=== PATIENT | male | born 1955 | race Caucasian/White ===

== ENCOUNTER → 2017-06-03 | Outpatient (REF) | payer OTHER, MEDICARE ==
[2017-06-03 13:08] LABS: APPEARANCE, URINE CLEAR (CLEAR); BACTERIA, URINE AUTO NEGATIVE (NEGATIVE); BILIRUBIN, URINE AUTO NEGATIVE (NEGATIVE); BLOOD, URINE BLOOD 1+ (NEGATIVE); COLOR, URINE YELLOW (YELLOW); GLUCOSE, URINE (UA) AUTO NEGATIVE (NEGATIVE); KETONE, URINE AUTO NEGATIVE (NEGATIVE); LEUKOCYTE ESTERASE, URINE AUTO NEGATIVE (NEGATIVE); MUCUS, URINE SMALL (NEGATIVE); NITRITE, URINE AUTO NEGATIVE (NEGATIVE); PROTEIN, URINE AUTO NEGATIVE (NEGATIVE); RBC, URINE AUTO 2 /HPF (0-3); SPECIFIC GRAVITY URINE AUTO 1.009 (1.002-1.035); SQUAMOUS EPITHELIAL CELL UR AU 0 /HPF (0-6); UROBILINOGEN, URINE AUTO 0.2 mg/dL (0.0-2.0); WBC, URINE AUTO 0 /HPF (0-3)
== END ==
LOC: M SMT 12:47
DX: R97.20 Elevated prostate specific antigen [PSA] (principal)

== ENCOUNTER → 2017-06-03 | Outpatient (CLI) | payer OTHER, MEDICARE ==
[2017-06-05 14:19] LABS: PSA TOTAL 12.2 ng/mL (0.0-4.0)
== END ==
LOC: M SMT 12:58
DX: R97.20 Elevated prostate specific antigen [PSA] (principal)
CPT/HCPCS: 84154

== ENCOUNTER → 2017-10-07 | Outpatient (REF) | payer OTHER, MEDICARE ==
[2017-10-07 17:00] LABS: APPEARANCE, URINE CLEAR (CLEAR); BACTERIA, URINE AUTO NEGATIVE (NEGATIVE); BILIRUBIN, URINE AUTO NEGATIVE (NEGATIVE); BLOOD, URINE BLOOD NEGATIVE (NEGATIVE); COLOR, URINE YELLOW (YELLOW); GLUCOSE, URINE (UA) AUTO NEGATIVE (NEGATIVE); KETONE, URINE AUTO NEGATIVE (NEGATIVE); LEUKOCYTE ESTERASE, URINE AUTO NEGATIVE (NEGATIVE); NITRITE, URINE AUTO NEGATIVE (NEGATIVE); PROTEIN, URINE AUTO NEGATIVE (NEGATIVE); RBC, URINE AUTO 1 /HPF (0-3); SPECIFIC GRAVITY URINE AUTO 1.006 (1.002-1.035); SQUAMOUS EPITHELIAL CELL UR AU 0 /HPF (0-6); UROBILINOGEN, URINE AUTO 0.2 mg/dL (0.0-2.0); WBC, URINE AUTO 0 /HPF (0-3)
== END ==
LOC: M SMT 15:56
DX: R97.20 Elevated prostate specific antigen [PSA] (principal)

== ENCOUNTER → 2017-10-21 | Outpatient (CLI) | payer OTHER | LOC: M SMT PRO 08:04 | DX: R97.20 Elevated prostate specific antigen [PSA] (principal) | CPT/HCPCS: G0416 ==

== ENCOUNTER → 2018-03-30 | Outpatient (CLI) | payer MEDICAID, MEDICARE ==
[~2018-03-30] MED LIST: PROHANCE 279.3MG/ML 15ML VIAL (A9576) As Ordered ONE
--- NOTE | 2018-03-30 15:31 | REP ---
MRI PROSTATE WITH AND WITHOUT CONTRAST: MULTIPARAMETRIC PROSTATE MRI STUDY WITH PRE- AND [id number] IMAGING, DIFFUSION WEIGHT IMAGING: TECHNIQUE: Using a phased array surface coil, small field of view imaging was acquired using T2-weighted scans in the axial, coronal, and sagittal imaging planes. Small field of view diffusion-weighted sequences are acquired. Small field of view axial T1-weighted scans are acquired dynamically after the intravenous administration of 11 mL of ProHance. Using a large field of view, the entire pelvis to the level of the aortic bifurcation was imaged using pre-contrast axial T1 and post-contrast axial T1 fat-saturation images. Prostate measures 4.9 x 4.3 x 4.2 cm for a total volume of 47 mL. Seminal vesicles are unremarkable. No adenopathy is seen in the visualized pelvis. No suspicious bone lesion is identified. Nodular low signal and high signal on T2 weighted imaging is seen throughout the prostate consistent with benign prostatic hypertrophy. Four discrete areas of abnormal signal and enhancement are identified. First in the left mid and base anterior transitional zone there is a rounded area of T2 signal hypointensity measuring 1.3 x 1.0 x 1.4 cm. Total volume is 1 mL. There is a type 3 enhancement within the nodule it does not extend beyond the prostate capsule. Overall level suspicion is 4/5 with clinically significant cancer likely to be present. Next to the left apical transitional zone there is a geographic area of predominately low signal on T2 and low signal on DWI images. There is type 3 enhancement in this region. The area measures 2.2 x 1.6 x 1.7 cm for a total volume of 2.56 mL. Overall levels is 3/5 with clinically significant cancer equivocal. In the right mid and apical transitional zone there is a geographic area of predominately low signal on T2 and DWI images. Within this area there is predominately type 3 enhancement. The area measures 2.4 x 1.3 x 2.4 cm for a total volume of 4.78 mL. Overall level of suspicion is 3/5 with clinically significant cancer equivocal. Finally in the left basilar anterior stroma and transitional zone as well as mid anterior stroma and transitional zone there is an area of predominately T2 signal hypointensity and also low signal on DWI imaging. Within this area there is predominately type two enhancement. The area measures 2.0 x 1.1 x 2.1 cm for a total volume of 3.12 mL. Overall level of suspicion is 3/5 with clinically significant cancer equivocal. IMPRESSION: Four regions of interest identified in the prostate gland demonstrating abnormal signal and enhancement as discussed in detail above. Electronically Signed by Stef Tracy MD 03/30/2018 11:51 P
== END ==
LOC: M RAD 09:28
PROVIDERS: ATTEND Urology
DX: R97.20 Elevated prostate specific antigen [PSA] (principal); R93.89 Abnormal findings on diagnostic imaging of other specified body structures
CPT/HCPCS: 72197; A9576